=== PATIENT | female | born 2000 | race Two or more races ===

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

== ENCOUNTER 2019-05-03 13:08 | Emergency (ER) | payer MEDICAID ==
[~2019-05-03] VITALS: Ht 162.6 cm; Wt 81.6 kg
[2019-05-03] MEDS ORDERED: DOCUSATE SODIUM 100 MG/10 ML LIQUID UDC ONE (13:26)
[2019-05-03] MEDS ORDERED: DOCUSATE SODIUM 100 MG/10 ML LIQUID UDC OT ONE (13:30)
--- NOTE | 2019-05-03 14:15 | NUR ---
Patient discharged to home in stable condition with brisk steady gait. Written and verbal after care instructions given to patient. Patient verbalizes understanding & compliance of instructions.
== END 2019-05-03 14:15 | disposition home or self-care (01) ==
LOC: ER 13:08
DX: H61.22 Impacted cerumen, left ear (principal)
CPT/HCPCS: A4663